=== PATIENT | male | born 1985 | race Hispanic/Latino ===

== ENCOUNTER 2019-06-18 02:14 | Emergency (ER) | payer BC ==
[2019-06-18 02:55] LABS: CARBON DIOXIDE,CO2 24.9 mmol/L (21.0-32.0)
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
[2019-06-18] MEDS ORDERED: Acetaminophen/HYDROcodone 325-7.5 MG Tab PO STA (03:55)
== END 2019-06-18 04:06 | disposition home or self-care (01) ==
LOC: MW.ED 02:14
DX: S99.922A Unspecified injury of left foot, initial encounter (principal); N28.9 Disorder of kidney and ureter, unspecified; Z79.82 Long term (current) use of aspirin; V59.9XXA Occupant (driver) (passenger) of pick-up truck or van injured in unspecified traffic accident, initial encounter
CPT/HCPCS: 36415; 73630; 80048; 85025; 99283; A9270

== ENCOUNTER 2019-06-22 11:12 | Emergency (ER) | payer BC ==
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
--- NOTE | 2019-06-22 12:15 | CR ---
Right foot: Two views of the right foot were obtained. Comparison: No prior right foot exam. Joint spaces are preserved. No fracture or other bony abnormality is seen. Impression: No abnormality is identified on 2 view right foot exam. Diagnostic code #1 MTDD
== END 2019-06-22 12:32 | disposition home or self-care (01) ==
LOC: MW.ED 11:12
DX: M79.671 Pain in right foot (principal); M79.672 Pain in left foot; M79.89 Other specified soft tissue disorders; Z79.82 Long term (current) use of aspirin
CPT/HCPCS: 73620-26-RT; 73620-RT; 99282; 99283-25